=== PATIENT | female | born 1930 | race Caucasian/White ===

== ENCOUNTER 2016-07-22 00:15 | Emergency (ER) | payer OTHER ==
--- NOTE | 2016-07-22 02:25 | ED CLINICAL REPORT ---
Clinical Report - Physicians/Mid Levels [facility] [address] [place] [address] 07/22/2016 0:15 Patient: JOI DANIEL Time Seen: 01:35. Arrived- By ambulance. Historian- patient and EMS personnel. HISTORY OF PRESENT ILLNESS Location of injuries- face. Chief Complaint: FALL. The injury occurred just prior to arrival. Fell (Pt stumbled and fell against her bedside table, bumping her L supraorbital area.). Occurred at a correction. The patient denies pain. The patient sustained a mild blow to the head. No neck pain, loss of consciousness or seizure. Not dazed. (PT states the impact was mild, and she does not have any other complaints.). REVIEW OF SYSTEMS No numbness, dizziness, loss of vision, hearing loss or chest pain. No difficulty breathing, weakness, headache, nausea or abdominal pain. No laceration, fever, vomiting or urinary problems. The patient has no pain on weight bearing. All systems otherwise negative, except as recorded above. PAST HISTORY Problems: Iodine hypothyroidism. Diverticulitis. Alzheimer's Disease. Hyperlipidemia. Additional Surgeries: no known surgeries. Medications: RisperDAL Oral (no med list provided). Tylenol Oral (no med list provided). Atorvastatin Calcium Oral (no med list provided). Allergies: Unknown. SOCIAL HISTORY Former smoker. No alcohol use or drug use. ADDITIONAL NOTES The nursing notes have been reviewed. PHYSICAL EXAM Vital Signs: 07/22/2016 01:22 BP: 136/56. HR: 90. RR: 16. O2 saturation: 100%. 07/22/2016 00:21 BP: 135. HR: 90. RR: 15. O2 saturation: 100%. Temp: 97.6 F. Have been reviewed. Appearance: Alert. No acute distress. Eyes: Pupils equal, round and reactive to light. EOM intact. Left periorbital area: mild tenderness and swelling and small ecchymosis. No erythema, puncture wound or foreign body. No laceration, abrasion or deformity. No injury to the supraorbital area. No entrapment of extraocular muscles or gaze palsy. ENT: No dental injury. Neck: Painless ROM. Non-tender. CVS: Heart sounds normal. Pulses normal. Respiratory: Breath sounds normal. Chest nontender. Abdomen: No visible injury. Soft and nontender. Back: No tenderness. ROM normal. Skin: Skin warm and dry. Normal skin turgor. Extremities: Normal inspection. Pelvis stable. Extremities atraumatic. No lower extremity edema. Neuro: No motor deficit. No sensory deficit. (Pt is alert and verbal.). LABS, X-RAYS, AND EKG Pulse Oximetry: 07/22/2016 00:21 O2 saturation: 100%. (FIO2 - room air). Interpretation: normal. PROGRESS AND PROCEDURES Course of Care: Pt had very mild, localized, facial contusion, and was without further complaints. I did not feel further intervention or work-up was indicated. Patient counseled in person regarding the patient's stable condition, diagnosis and need for follow-up. Concerns were addressed. Old medical records reviewed. Disposition: Discharged. Condition: stable. CLINICAL IMPRESSION Single contusion to the right periorbital area. Fall on same level by stumbling. INSTRUCTIONS (There are no signs of a serious injury.). Warnings: GENERAL WARNINGS: Return or contact your physician immediately if your condition worsens or changes unexpectedly, if not improving as expected, or if other problems arise. Your Current Medications: CONTINUE TAKING THE FOLLOWING MEDICATIONS: Atorvastatin Calcium Oral : no med list provided. RisperDAL Oral : no med list provided. Tylenol Oral : no med list provided. Follow-up: Follow up with your doctor. Understanding of the discharge instructions verbalized by patient. Discharge instructions reviewed with and understanding was verbalized by caregiver. (Electronically signed by Jessy Gates MD 07/31/2016 18:16)
--- NOTE | 2016-07-22 02:25 | ED NURSING NOTES ---
Clinical Report - Nurses [facility] [address] [place] [address] 07/22/2016 0:15 [id number] Triage time 00:24 Jul 22 2016. Acuity: LEVEL 4. 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 Alert. No acute distress. SEPSIS SCREEN: Sepsis Screen: negative. Negative (no infection suspected/documented). MARISOL COMA SCORE: Marisol Coma Scale: 14- eyes open spontaneously (4); best verbal response- disoriented (4); best motor response- obeys commands (6). --00:34 Lito Shaver R.N. 00:21 07/22/16. BP: 135. HR: 90. RR: 15. O2 saturation: 100%. Temp: 97.6 F. Pain level now 6/10. --00:34 Lito Shaver R.N. Acuity: LEVEL 4. --00:37 Lito Shaver R.N. Acuity: LEVEL 4. --00:37 Lito Shaver R.N. Weight: 49.8 kg stated. Height/Length: 62 inches Per Patient. BMI: 20.1. --00:28 Lito Shaver R.N. Medications Atorvastatin Calcium Oral (no med list provided). --00:26 Lito Shaver R.N. Tylenol Oral (no med list provided). --00:26 Lito Shaver R.N. RisperDAL Oral (no med list provided). --00:26 Lito Shaver R.N. (no med list provided). --00:34 Lito Shaver R.N. Allergies Unknown. --00:25 Lito Shaver R.N. History Arrived by EMS, and (ems). This occurred just prior to arrival. Mechanism of injury: fell (unwitnessed pt reported to staff she fell on to her night stand, has bruising to left eye). The patient had loss of consciousness. (unknown- pt with hx of alzheimers). ( pt c/o pain "to the small of my back"). Treatment FOREST EXAMINER: None. See EMS report. PAST MEDICAL HX: Tetanus status: unknown. Immunizations: status is unknown. SURGERY HX: ( pt poor hx, face sheet only brought by ems). 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 No alcohol use or drug use. ABUSE ASSESSMENT: No report of abuse. FALL RISK ASSESSMENT: Fall risk assessment completed. Risk factors identified include patient age greater than 65 years, history of fall and impairment of mobility and cognition. Fall interventions initiated. Patient placed on stretcher. Side rails up x2. Brakes on Bed in low position. Patient visible from nurses' station and identified as a fall risk by ID band. Call light in reach of patient. Instructed not to get up without assistance. FUNCTIONAL ASSESSMENT: Functional assessment performed: requires assistance with the activities of daily living; cognitive impairment- Alzheimer's disease- this cognitive impairment is an ongoing problem. --00:34 Lito Shaver R.N. PROBLEMS: Iodine hypothyroidism. Diverticulitis. Alzheimer's Disease. Hyperlipidemia. --00:28 Lito Shaver R.N. Interventions ID band on patient. To treatment room. --00:34 Lito Shaver R.N. PHYSICAL ASSESSMENT GENERAL / NEURO / PSYCH: Alert. Appears in no acute distress. The patient is disoriented to place and time. HEENT: Pupils equal, round and reactive to light. Left eyebrow area: swelling and ecchymosis of the lateral aspect of the eyebrow. Left periorbital area. Ear within normal limits. No nasal injury noted. Mucous membranes are pink. RESPIRATORY: Respirations not labored. CVS: Capillary refill less than 2 seconds. SKIN: Skin is warm and dry. --00:36 Lito Shaver R.N. NURSING PROGRESS NOTES Pulse oximeter applied. Patient gowned. Reassurance given. Call light placed in reach. Side rails up x 2. Bed placed in lowest position. Brakes of bed on. Patient waiting for evaluation. --00:36 iLto Shaver R.N. Care transferred and report received. --01:17 Sweta Austin R.N. 01:22 07/22/16. BP: 136/56. HR: 90. RR: 16. O2 saturation: 100%. --01:22 Sweta Austin R.N. 01:26. ( changed patient postion). --01:26 Cat Andrews R.N. ( care released). --01:33 Lito Shaver R.N. ( assisted pt to ambulate to restroom and back to bed. normal gait noted). --02:26 Sweta Austin R.N. DISPOSITION / DISCHARGE ( contacted [facility] to inform that pt will be coming home. Updated on ED course of care and discharge. Discharge instructions to be printed and sent home with pt for facility review.). --02:41 Sweta Austin R.N. 02:45 07/22/16. BP: 120/68. HR: 82. RR: 15. O2 saturation: 100%. Temp: 97.6 F (oral). Pain level now: 0/10. --02:46 Sweta Austin R.N. ( pt continues to be confused. States "yesterday was a terrible day for pt care, I was the nurse and the patient, it was a terrible day."). --02:47 Sweta Austin R.N. ( assisted pt to dress in her own clothes.). --02:50 Sweta Austin R.N. Report was given to an EMT/P in person. Report included patient's care, treatment, medications, reviewed medication reconcilliation, and condition (including any recent changes or anticipated changes). Report was acknowledged. (to transport team.). --03:04 Sweta Austin R.N. Transported via stretcher by transport team. --03:04 Sweta Austin R.N. Locked/Released at 07/22/2016 3:04 by Sweta Austin R.N.
--- NOTE | 2016-07-22 02:25 | ED NURSING NOTES ---
Clinical Report - Nurses [facility] [address] [place] [address] 07/22/2016 0:15 [id number] Triage time 00:24 Jul 22 2016. Acuity: LEVEL 4. Chief Complaint: INJURY TO FACE and LEFT EYE (pt from 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 Alert. No acute distress. SEPSIS SCREEN: Sepsis Screen: negative. Negative (no infection suspected/documented). MARISOL COMA SCORE: Marisol Coma Scale: 14- eyes open spontaneously (4); best verbal response- disoriented (4); best motor response- obeys commands (6). --00:34 Lito Shaver R.N. 00:21 07/22/16. BP: 135. HR: 90. RR: 15. O2 saturation: 100%. Temp: 97.6 F. Pain level now 6/10. --00:34 Lito Shaver R.N. Acuity: LEVEL 4. --00:37 Lito Shaver R.N. Acuity: LEVEL 4. --00:37 Lito Shaver R.N. Weight: 49.8 kg stated. Height/Length: 62 inches Per Patient. BMI: 20.1. --00:28 Lito Shaver R.N. Medications Atorvastatin Calcium Oral (no med list provided). --00:26 Lito Shaver R.N. Tylenol Oral (no med list provided). --00:26 Lito Shaver R.N. RisperDAL Oral (no med list provided). --00:26 Lito Shaver R.N. (no med list provided). --00:34 Lito Shaver R.N. Allergies Unknown. --00:25 Lito Shaver R.N. History Arrived by EMS, and (ems). This occurred just prior to arrival. Mechanism of injury: fell (unwitnessed pt reported to staff she fell on to her night stand, has bruising to left eye). The patient had loss of consciousness. (unknown- pt with hx of alzheimers). ( pt c/o pain "to the small of my back"). Treatment MASTER CONTROL TECHNICIAN: None. See EMS report. PAST MEDICAL HX: Tetanus status: unknown. Immunizations: status is unknown. SURGERY HX: ( pt poor hx, face sheet only brought by ems). 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 No alcohol use or drug use. ABUSE ASSESSMENT: No report of abuse. FALL RISK ASSESSMENT: Fall risk assessment completed. Risk factors identified include patient age greater than 65 years, history of fall and impairment of mobility and cognition. Fall interventions initiated. Patient placed on stretcher. Side rails up x2. Brakes on Bed in low position. Patient visible from nurses' station and identified as a fall risk by ID band. Call light in reach of patient. Instructed not to get up without assistance. FUNCTIONAL ASSESSMENT: Functional assessment performed: requires assistance with the activities of daily living; cognitive impairment- Alzheimer's disease- this cognitive impairment is an ongoing problem. --00:34 Lito Shaver R.N. PROBLEMS: Iodine hypothyroidism. Diverticulitis. Alzheimer's Disease. Hyperlipidemia. --00:28 Lito Shaver R.N. Interventions ID band on patient. To treatment room. --00:34 Lito Shaver R.N. PHYSICAL ASSESSMENT GENERAL / NEURO / PSYCH: Alert. Appears in no acute distress. The patient is disoriented to place and time. HEENT: Pupils equal, round and reactive to light. Left eyebrow area: swelling and ecchymosis of the lateral aspect of the eyebrow. Left periorbital area. Ear within normal limits. No nasal injury noted. Mucous membranes are pink. RESPIRATORY: Respirations not labored. CVS: Capillary refill less than 2 seconds. SKIN: Skin is warm and dry. --00:36 Lito Shaver R.N. NURSING PROGRESS NOTES Pulse oximeter applied. Patient gowned. Reassurance given. Call light placed in reach. Side rails up x 2. Bed placed in lowest position. Brakes of bed on. Patient waiting for evaluation. --00:36 Lito Shaver R.N. Care transferred and report received. --01:17 Sweta Austin R.N. 01:22 07/22/16. BP: 136/56. HR: 90. RR: 16. O2 saturation: 100%. --01:22 Sweta Austin R.N. 01:26. ( changed patient postion). --01:26 Cat Andrews R.N. ( care released). --01:33 Lito Shaver R.N. ( assisted pt to ambulate to restroom and back to bed. normal gait noted). --02:26 Sweta Austin R.N. DISPOSITION / DISCHARGE ( contacted [facility] to inform that pt will be coming home. Updated on ED course of care and discharge. Discharge instructions to be printed and sent home with pt for facility review.). --02:41 Sweta Austin R.N. 02:45 07/22/16. BP: 120/68. HR: 82. RR: 15. O2 saturation: 100%. Temp: 97.6 F (oral). Pain level now: 0/10. --02:46 Sweta Austin R.N. ( pt continues to be confused. States "yesterday was a terrible day for pt care, I was the nurse and the patient, it was a terrible day."). --02:47 Sweta Austin R.N. ( assisted pt to dress in her own clothes.). --02:50 Sweta Austin R.N. Report was given to an EMT/P in person. Report included patient's care, treatment, medications, reviewed medication reconcilliation, and condition (including any recent changes or anticipated changes). Report was acknowledged. (to transport team.). --03:04 Sweta Austin R.N. Transported via stretcher by transport team. --03:04 Sweta Austin R.N. Locked/Released at 07/22/2016 3:04 by Sweta Austin R.N.
--- NOTE | 2016-07-22 02:25 | ED CLINICAL REPORT ---
Clinical Report - Physicians/Mid Levels [facility] [address] [place] [address] 07/22/2016 0:15 Patient: JOI DANIEL Time Seen: 01:35. Arrived- By ambulance. Historian- patient and EMS personnel. HISTORY OF PRESENT ILLNESS Location of injuries- face. Chief Complaint: FALL. The injury occurred just prior to arrival. Fell (Pt stumbled and fell against her bedside table, bumping her L supraorbital area.). Occurred at a fci. The patient denies pain. The patient sustained a mild blow to the head. No neck pain, loss of consciousness or seizure. Not dazed. (PT states the impact was mild, and she does not have any other complaints.). REVIEW OF SYSTEMS No numbness, dizziness, loss of vision, hearing loss or chest pain. No difficulty breathing, weakness, headache, nausea or abdominal pain. No laceration, fever, vomiting or urinary problems. The patient has no pain on weight bearing. All systems otherwise negative, except as recorded above. PAST HISTORY Problems: Iodine hypothyroidism. Diverticulitis. Alzheimer's Disease. Hyperlipidemia. Additional Surgeries: no known surgeries. Medications: RisperDAL Oral (no med list provided). Tylenol Oral (no med list provided). Atorvastatin Calcium Oral (no med list provided). Allergies: Unknown. SOCIAL HISTORY Former smoker. No alcohol use or drug use. ADDITIONAL NOTES The nursing notes have been reviewed. PHYSICAL EXAM Vital Signs: 07/22/2016 01:22 BP: 136/56. HR: 90. RR: 16. O2 saturation: 100%. 07/22/2016 00:21 BP: 135. HR: 90. RR: 15. O2 saturation: 100%. Temp: 97.6 F. Have been reviewed. Appearance: Alert. No acute distress. Eyes: Pupils equal, round and reactive to light. EOM intact. Left periorbital area: mild tenderness and swelling and small ecchymosis. No erythema, puncture wound or foreign body. No laceration, abrasion or deformity. No injury to the supraorbital area. No entrapment of extraocular muscles or gaze palsy. ENT: No dental injury. Neck: Painless ROM. Non-tender. CVS: Heart sounds normal. Pulses normal. Respiratory: Breath sounds normal. Chest nontender. Abdomen: No visible injury. Soft and nontender. Back: No tenderness. ROM normal. Skin: Skin warm and dry. Normal skin turgor. Extremities: Normal inspection. Pelvis stable. Extremities atraumatic. No lower extremity edema. Neuro: No motor deficit. No sensory deficit. (Pt is alert and verbal.). LABS, X-RAYS, AND EKG Pulse Oximetry: 07/22/2016 00:21 O2 saturation: 100%. (FIO2 - room air). Interpretation: normal. PROGRESS AND PROCEDURES Course of Care: Pt had very mild, localized, facial contusion, and was without further complaints. I did not feel further intervention or work-up was indicated. Patient counseled in person regarding the patient's stable condition, diagnosis and need for follow-up. Concerns were addressed. Old medical records reviewed. Disposition: Discharged. Condition: stable. CLINICAL IMPRESSION Single contusion to the right periorbital area. Fall on same level by stumbling. INSTRUCTIONS (There are no signs of a serious injury.). Warnings: GENERAL WARNINGS: Return or contact your physician immediately if your condition worsens or changes unexpectedly, if not improving as expected, or if other problems arise. Your Current Medications: CONTINUE TAKING THE FOLLOWING MEDICATIONS: Atorvastatin Calcium Oral : no med list provided. RisperDAL Oral : no med list provided. Tylenol Oral : no med list provided. Follow-up: Follow up with your doctor. Understanding of the discharge instructions verbalized by patient. Discharge instructions reviewed with and understanding was verbalized by caregiver. (Electronically signed by Jessy Gates MD 07/31/2016 18:16)
--- NOTE | 2016-07-31 18:16 | ED MED RECONCILIATION SUMMARY ---
Patient: JOI DANIEL [facility]ication [facility] [id number] [address] [place] [address] 85y, F Registration Date/Time: 07/22/2016 Weight: 49.8 kg Height/Length: 62 in. BMI: 20.1 ALLERGIES: Unknown The patient's Home Medications are listed below: CONTINUE TAKING THE FOLLOWING MEDICATIONS: Atorvastatin Calcium Oral, no med list provided RisperDAL Oral, no med list provided Tylenol Oral, no med list provided The source(s) of the original Home Medication information: no med list provided The following Medications were given to the patient in the Emergency Department: None. The following Medications were prescribed to the patient: None.
--- NOTE | 2016-07-31 18:16 | ED MAR SUMMARY ---
..... Medication Administration Record [facility] [address] [place], [place] [id number] Patient: JOI DANIEL Visit ID: [id number] 85y, F Weight: 49.8 kg Height/Length: 62 in BMI: 20.1 ALLERGIES: Unknown
--- NOTE | 2016-07-31 18:16 | ED MAR SUMMARY ---
..... Medication Administration Record Merged With [facility] [address] [place], [place] [id number] Patient: JOI DANIEL Visit ID: [id number] 85y, F Weight: 49.8 kg Height/Length: 62 in BMI: 20.1 ALLERGIES: Unknown
--- NOTE | 2016-07-31 18:16 | ED DISCHARGE INSTRUCTIONS ---
Patient: JOI DANIEL General Instructions [facility] VisitID: [id number] [place] [address] 85y, F Registration Date/Time: 07/22/2016 Single contusion to the right periorbital area. Fall on same level by stumbling. INSTRUCTIONS (There are no signs of a serious injury.). Warnings: GENERAL WARNINGS: Return or contact your physician immediately if your condition worsens or changes unexpectedly, if not improving as expected, or if other problems arise. Your Current Medications: CONTINUE TAKING THE FOLLOWING MEDICATIONS: Atorvastatin Calcium Oral : no med list provided. RisperDAL Oral : no med list provided. Tylenol Oral : no med list provided. Follow-up: Follow up with your doctor. Understanding of the discharge instructions verbalized by patient. Discharge instructions reviewed with and understanding was verbalized by caregiver. ADDITIONAL INFORMATION Mechanical Fall You have had a fall today. It appears that the cause is mechanical. That means that you slipped, tripped or lost your balance. If your fall had been due to fainting or a seizure, further tests would be required. Home Care: Rest today and resume your normal activities when you are feeling back to normal. If you were injured during the fall, follow the advice from your doctor regarding care of your injury. You may use acetaminophen (Tylenol) or ibuprofen (Motrin, Advil) to control pain, unless another pain medicine was prescribed. [NOTE: If you have chronic liver or kidney disease or ever had a stomach ulcer or GI bleeding, talk with your doctor before using these medicines.] Fall Prevention: Was there anything that caused your fall that can be fixed, removed, or replaced? Make your home safe by keeping walkways clear of objects you may trip over. Use non-slip pads under rugs. Do not walk in poorly lit areas. Do not stand on chairs or wobbly ladders. Use caution when reaching overhead or looking upward. This position can cause a loss of balance. Be sure your shoes fit properly, have non-slip bottoms and are in good condition. Be cautious when going up and down curbs, and walking on uneven sidewalks. If your balance is poor, consider using a cane or walker. Stay as active as you can. Balance, flexibility, strength, and endurance all come from exercise. They all play a role in preventing falls. Follow Up with your doctor or as advised by our staff. Get Prompt Medical Attention if any of the following occur: Repeated mechanical falls, or unexplained falls Dizziness, fainting or seizure Severe headache Chest pain or shortness of breath Palpitations (very rapid or very slow or irregular heartbeat) Blood in vomit, stools (black or red color) Weakness of an arm or leg or one side of the face Difficulty with speech or vision Facial Contusion (No Wake-Up) A facial contusion is a bruise with swelling and sometimes bleeding under the skin. The swelling should start to go down within two days. Although there may be no signs of a serious injury at this time, symptoms may appear later which could be a sign of a more serious problem. Therefore, watch for the warning signs below. Home care The following guidelines will help you care for your injury at home: If you have swelling of the face, apply an ice pack (ice cubes in a plastic bag, wrapped in a towel) for 20 minutes every 12 hours until the swelling starts to go down. If you have scrapes or cuts on your face, clean them daily with soap and water. Apply an antibiotic ointment or cream for the first few days to prevent infection. You may use acetaminophen or ibuprofen to control pain, unless another pain medicine was prescribed.If you have chronic liver or kidney disease or ever had a stomach ulcer or GI bleeding, talk with your doctor before using these medicines. Do not use ibuprofen in children under six months of age. For the next 24 hours: Do not take alcohol, sedatives or medicines that make you sleepy. Do not drive or operate machinery. Avoid strenuous activities. No lifting or straining. If you have had any symptoms of aconcussiontoday (nausea, vomiting, dizziness, confusion, headache, memory loss or if you were knocked out), do not return to sports or any activity that could result in another head injury until all symptoms are gone and you have been cleared by your doctor. A second head injury before fully recovering from the first one can lead to serious brain injury. Follow-up care Follow up with your doctor in one week or as directed. Note: Any X-rays or CT scans taken will be reviewed by a radiologist. You will be notified of any new findings that may affect your care. When to seek medical care Get prompt medical attention if any of the following occur: Repeated vomiting Severe or worsening headache or dizziness Unusual drowsiness, or unable to awaken as usual Confusion or change in behavior or speech, memory loss, blurred vision Convulsion (seizure) Increasing scalp or face swelling Redness, warmth or pus from the swollen area Fluid drainage or bleeding from the nose or ears Fever of 100.4F (38C) or higher, or as directed by your health care provider Increasing jaw pain with chewing or increasing pain in the sinuses Nose looks crooked or cannot breathe through your nose after swelling goes down You have been given the following additional information: Fall, Mechanical Facial Contusion, No Wakeup (Electronically signed by Jessy Gates MD 07/31/2016 18:16)
--- NOTE | 2016-07-31 18:16 | ED MED RECONCILIATION SUMMARY ---
Patient: JOI DANIEL Medication Reconciliation Report [facility] VisitID: [id number] [address] [place] [address] 85y, F Registration Date/Time: 07/22/2016 Weight: 49.8 kg Height/Length: 62 in. BMI: 20.1 ALLERGIES: Unknown The patient's Home Medications are listed below: CONTINUE TAKING THE FOLLOWING MEDICATIONS: Atorvastatin Calcium Oral, no med list provided RisperDAL Oral, no med list provided Tylenol Oral, no med list provided The source(s) of the original Home Medication information: no med list provided The following Medications were given to the patient in the Emergency Department: None. The following Medications were prescribed to the patient: None.
== END 2016-07-22 03:00 | disposition home or self-care (01) ==
LOC: ED SRH 00:15
DX: S00.11XA Contusion of right eyelid and periocular area, initial encounter (principal); W01.0XXA Fall on same level from slipping, tripping and stumbling without subsequent striking against object, initial encounter; Y93.9 Activity, unspecified; Y92.129 Unspecified place in nursing home as the place of occurrence of the external cause; Y99.9 Unspecified external cause status